=== PATIENT | female | born 1975 | race Caucasian/White ===

== ENCOUNTER 2019-02-24 05:40 | Outpatient (CLI) | payer OTHER ==
[~2019-02-24] VITALS: Ht 170.2 cm; Wt 89.8 kg
[2019-02-24] MEDS ORDERED: FURO20TA4 PO (15:39)
[2019-02-24] MEDS ORDERED: VILA40TA PO (15:39)
[2019-02-24] MEDS ORDERED: METO-395 PO (15:39)
[2019-02-24] MEDS ORDERED: ELET20TA PO (15:39)
== END 2019-02-24 15:50 | disposition home or self-care (01) ==
LOC: PREOP 05:40
PROVIDERS: ATTEND Surgery
DX: Z01.818 Encounter for other preprocedural examination (principal)

== ENCOUNTER 2019-03-03 10:46 | Day surgery (SDC) | payer BC, OTHER ==
[2019-03-03] VITALS (11 sets, daily range): BP systolic 90–109; BP diastolic 52–73
[~2019-03-03] VITALS: Ht 170.2 cm; Wt 89.8 kg
[~2019-03-03 10:46] MED LIST: ELET20TA PO; FURO20TA4 PO; METO-395 PO; VILA40TA PO
--- OUTSIDE RECORDS SUMMARY | 2019-03-03 10:49 | XMS REPORT ---
Author Author LUDWIG ROGEL Organization [facility] Address [address] [place] [address] Care Team Providers Care Conveyor Tender Name Role Phone LUDWIG ROGEL Unavailable PROBLEMS Type Condition ICD9-CM Code HVO09-BD Code Onset Dates Condition Status SNOMED Code Problem Depressive disorder, not elsewhere classified F32.9 Active [id number] ALLERGIES No Information ENCOUNTERS Encounter Location Date Diagnosis [facility] [address] [place] [address] [id number] [id number] Mar, Depressive disorder, not elsewhere classified F32.9 IMMUNIZATIONS No Known Immunizations SOCIAL HISTORY Never Assessed REASON FOR VISIT Psychological evaluation for bariatric surgery. PLAN OF CARE VITAL SIGNS MEDICATIONS Unknown Medications RESULTS No Results PROCEDURES Procedure Date Ordered Result Body Site Psych diagnostic evaluation, new patient March 12, 2018 INSTRUCTIONS MEDICATIONS ADMINISTERED No Known Medications
[2019-03-03] MEDS: LACTATED RINGERS 1,000 ML IV PRN ×2 (11:15→14:16)
[2019-03-03 11:26] LABS: BASOPHILS % (AUTO) 1 % (0-10); EOSINOPHILS # (AUTO) 0.1 10^3/uL (0.0-0.3); EOSINOPHILS % (AUTO) 2 % (0-10); HEMATOCRIT 41 % (35-52); LYMPHOCYTES # (AUTO) 2.3 X 10^3 (1.0-4.0); LYMPHOCYTES % (AUTO) 30 % (12-44); MEAN CORPUSCULAR HEMOGLOBIN 30 PG (25-34); MEAN CORPUSCULAR HGB CONC 34 G/DL (32-36); MEAN CORPUSCULAR VOLUME 88 FL (80-99); MEAN PLATELET VOLUME 10.6 FL (7.4-10.4); MONOCYTES # (AUTO) 0.4 X 10^3 (0.0-1.0); MONOCYTES % (AUTO) 5 % (0-12); NEUTROPHILS # (AUTO) 4.8 X 10^3 (1.8-7.8); NEUTROPHILS % (AUTO) 62 % (42-75); PLATELET COUNT 301 10^3/uL (130-400); RED CELL DISTRIBUTION WIDTH 12.4 % (10.0-14.5); WHITE BLOOD COUNT 7.7 10^3/uL (4.3-11.0)
[2019-03-03] MEDS ORDERED: ceFAZolin 2 GM/50 ML NS 50 ML IV ONE (11:30)
[2019-03-03] MEDS ORDERED: CATHETER FLUSH 10 ML SYR IV PRN (11:45)
--- NOTE | 2019-03-03 11:55 | Progress Note-Pre Operative ---
Pre-Operative Progress Note H&P Reviewed The H&P was reviewed, patient examined and no changes noted. Date Seen by Provider: March 03, 2019 Time Seen by Provider: 11:55 Date H&P Reviewed: March 03, 2019 Time H&P Reviewed: 11:50 Pre-Operative Diagnosis: Symptomatic Biliary Dyskinesia SUSIE GUPTA APRN March 03, 2019 11:55
[2019-03-03] MEDS ORDERED: HYDR-3816 PO (11:57)
--- NOTE | 2019-03-03 11:58 | Discharge Inst-Surgical ---
D/C Lap Instructions-KIDO New, Converted, or Re-Newed RX: RX on Chart Follow Up Appt in 2 weeks Activity as tolerated No driving for 24 hours No driving while on pain medications Incentive Spirometry use every 2 hours while awake Regular Diet Symptoms to Report: Fever over 101 degree F, Nausea/Vomiting Infection Signs and Symptoms to report: Increased redness, Foul odor of wound, Increased drainage Bathing instructions: May shower Operative Area Clean/Dry; Keep incision clean/dry If any problems/questions: Contact your physician or go to Emergency Room SUSIE GUPTA APRN March 03, 2019 11:58
[2019-03-03] MEDS ORDERED: ONDANSETRON 4 MG/2 ML (SDV) Z0FRAN IVP PRN ×2 (12:00→15:15)
[2019-03-03] MEDS ORDERED: morphine INJ 10 MG/ML 1ML (SYR OR VIAL) IVP PRN (12:00)
[2019-03-03] MEDS ORDERED: HYDROcodone/APAP 5 MG/325 MG (LORTAB) TAB PO ONE (12:00)
[2019-03-03] MEDS ORDERED: ACETAMINOPHEN 325 MG TABLET PO PRN (12:00)
[2019-03-03] MEDS ORDERED: FAMOTIDINE 20MG/2ML IV (PEPCID) IV ONE (12:15)
[2019-03-03] MEDS ORDERED: BUP/EPI 0.5% 1:200,000 (SENSORCAINE) 30 ML VIAL ONE (13:09)
[2019-03-03] MEDS ORDERED: FAMOTIDINE 20MG/2ML IV (PEPCID) ONE (13:24)
[2019-03-03] MEDS ORDERED: MIDAZOLAM 2 MG/2 ML (VERSED) VIAL ONE (13:36)
[2019-03-03] MEDS ORDERED: fentaNYL INJECTION 100 MCG/2 ML AMP ONE (13:36)
[2019-03-03] MEDS ORDERED: LIDOCAINE PF 2% 5 ML (XYLOCAINE) VIAL ONE (14:22)
[2019-03-03] MEDS ORDERED: ONDANSETRON 4 MG/2 ML (SDV) Z0FRAN ONE (14:22)
[2019-03-03] MEDS ORDERED: proPOfol 200 MG/20 ML (DIPRIVAN) VIAL IV ONE (14:22)
[2019-03-03] MEDS ORDERED: DEXAMETHASONE 10 MG/ML (DECADRON) 1 ML VIAL ONE (14:22)
[2019-03-03] MEDS ORDERED: ROCURONIUM 10 MG/ML 5 ML SYRINGE IV ONE (14:22)
[2019-03-03] MEDS ORDERED: SEVOFLURANE (ULTANE) 15 ML INHAL SOLN ONE (14:22)
[2019-03-03] MEDS ORDERED: NEOSTIGMINE 1 MG/ML 5 ML SYRINGE ONE (14:22)
[2019-03-03] MEDS ORDERED: GLYCOPYRROLATE 0.2 MG/ML (ROBINUL) 2 ML VIAL ONE (14:22)
[2019-03-03] MEDS ORDERED: HYDROmorphone 2 MG/ML VIAL (DILAUDID) ONE (15:02)
--- NOTE | 2019-03-03 15:05 | Progress Note-Post Operative ---
Post-Operative Progess Note Surgeon (s)/Online Banking Specialist (s) Surgeon BHAVYA ABDALLA MD Online Banking Specialist: sushila liu HUMAN RESOURCES TRAINING MANAGER Pre-Operative Diagnosis Symptomatic Biliary Dyskinesia Post-Operative Diagnosis same Procedure & Operative Findings Date of Procedure 03/03/19 Procedure Performed/Findings laparoscopic cholecystectomy Anesthesia Type GET Estimated Blood Loss Estimated blood loss (mL): minimal Specimens/Packing Specimens Removed gallbladder BHAVYA ABDALLA MD March 03, 2019 15:05
[2019-03-03] MEDS ORDERED: HYDROmorphone 2 MG/ML VIAL (DILAUDID) IV ONE (15:15)
[2019-03-03] MEDS ORDERED: morphine INJ 10 MG/ML 1ML (SYR OR VIAL) IVP ONE (15:15)
[2019-03-03] MEDS ORDERED: HYDROcodone/APAP 5 MG/325 MG (LORTAB) TAB ONE (16:25)
--- NOTE | 2019-03-03 16:27 | Anesthesia-General Post-Op ---
General Patient Condition Mental Status/LOC: Same as Preop Cardiovascular: Satisfactory Nausea/Vomiting: Absent Respiratory: Satisfactory Pain: Controlled Complications: Absent Post Op Complications Complications None Follow Up Care/Instructions Patient Instructions None needed. Anesthesia/Patient Condition Patient Condition Patient was seen after the procedure and she was doing well, no complaints, stable vital signs, no apparent adverse anesthesia problems. JOCELYN OROZCO DO March 03, 2019 16:27
--- NOTE | 2019-03-03 20:17 | OPERATIVE REPORT ---
DATE OF SERVICE: 03/03/2019 PREOPERATIVE DIAGNOSIS: Symptomatic biliary dyskinesia. POSTOPERATIVE DIAGNOSIS: Symptomatic biliary dyskinesia. PROCEDURE: Laparoscopic cholecystectomy. SURGEON: Bhavya Abdalla MD SURGEON CHIEF: Oleksandr Kang APRN ANESTHESIA: General endotracheal. ESTIMATED BLOOD LOSS: Minimal. FINDINGS: Distended gallbladder with omental adhesions to the gallbladder body and fundus. No gallstones identified. DISPOSITION: The patient tolerated the procedure well. INDICATIONS: The patient is a 43-year-old female known to us. She has a history of morbid obesity as well as other related medical comorbidities. In 07/2018, she underwent a gastric sleeve resection and since that time, she has lost a greater than 60 pounds. She states in the past 2 months she has had crampy right upper abdominal quadrant pain with radiation towards the back, which would normally occurs after eating a meal. She also reports that this was initially mild and infrequent; however, has become much more severe as well as more frequent. An ultrasound was performed, which did not show any gallstones; however, HIDA scan was performed, which did show very low ejection fraction of 7% consistent with biliary dyskinesia. DESCRIPTION OF PROCEDURE: The patient was brought to the operating room, laid supine on the table. After adequate IV pain and sedative medications and general endotracheal intubation, the abdomen was prepped and draped in standard surgical fashion. A 0.5% Marcaine with epinephrine was used to anesthetize the overlying skin in the left upper abdominal quadrant. A small transverse skin incision made using 15 blade. An 0 silk suture was applied to the medial aspect of the incision for retraction and a Veress needle inserted with a low opening pressure of 0 mmHg and the abdomen was insufflated to 15 mmHg pressure. The Veress needle removed and a 5 mm Xcel trocar placed followed by a 5 mm 45-degree angle laparoscope visualizing the peritoneal cavity. A 4-quadrant abdominal exploration was performed. There was slightly distended gallbladder as well as omental adhesions towards the body and fundus of the gallbladder. There was no acute inflammatory changes within the gallbladder. Under direct visualization, we then proceeded to place a supraumbilical 10 mm port after the skin and peritoneal lining were anesthetized using 0.5% Marcaine with epinephrine and a transverse skin incision made using 15 blade. In a similar manner, a right upper abdominal quadrant 5 mm port was placed. The patient was then placed in a reverse Trendelenburg position as well as plane right side up, left side down. The fundus of the gallbladder was then retracted anteriorly and superiorly and the omental adhesions were then taken down using blunt dissection as well as electrocautery on the hook instrument. The hepatoduodenal ligament was then bluntly dissected as well as was then opened and dissected using blunt dissection as well as electrocautery using the hook instrument. The entire critical view of safety was identified including the triangle of Calot as well as the cystic duct and artery is only two structures going into the gallbladder as well as the cystic plate behind the proximal gallbladder. A timeout was then taken and the cystic duct and artery were then clipped proximally, distally and cut with EndoShears. The gallbladder was then dissected off the liver bed using electrocautery and hook instrument with visualization of good hemostasis as well as no leaking ducts of Luschka. The gallbladder was removed with a 10 mm port site using an EndoCatch bag. The 10 mm of port was then removed and the fascia and peritoneum to this site was then closed using a 0 Vicryl suture and a Alonso-Herminia device. The abdomen was desufflated and remaining ports removed. All skin incisions were closed using 4-0 Monocryl running subcuticular sutures. Wounds were then cleaned and covered with Dermabond. The patient tolerated the procedure well. We will start IV normal pain medication as well as a clear liquid diet. Once she is tolerating clears, has good pain control with oral pain medication, ambulating well, we will discharge her home. She will be instructed to do no heavy lifting or exertion for the next two weeks. Job ID: [id number] DocumentID: [id number] Dictated Date: 03/03/2019 15:11:09 Contact Lens Molder Date: 03/03/2019 20:17:20 Dictated By: BHAVYA ABDALLA MD [facility]
== END 2019-03-03 16:50 | disposition home or self-care (01) ==
LOC: SDC 10:46
PROVIDERS: ATTEND Surgery
DX: K81.1 Chronic cholecystitis (principal); I10 Essential (primary) hypertension; G47.33 Obstructive sleep apnea (adult) (pediatric); K21.9 Gastro-esophageal reflux disease without esophagitis; F32.9 Major depressive disorder, single episode, unspecified; F41.9 Anxiety disorder, unspecified; G43.909 Migraine, unspecified, not intractable, without status migrainosus; R60.0 Localized edema; Z79.899 Other long term (current) drug therapy; Z98.84 Bariatric surgery status
CPT/HCPCS: 36415; 84703; 85025; 87081; 94664

== ENCOUNTER 2019-03-14 09:21 | Inpatient (IN) | payer BC ==
[~2019-03-14] VITALS: Ht 170.2 cm; Wt 88.2 kg
[~2019-03-14 09:21] MED LIST changes: +HYDR-3816 PO
[2019-03-14 10:15] VITALS: BP 103/59
--- OUTSIDE RECORDS SUMMARY | 2019-03-14 10:21 | XMS REPORT | Continuity of Care Document ---
Author Organization Unknown Address Unknown Allergies Active Description Code Type Severity Reaction Onset Reported/Identified Relationship to Patient Clinical Status Yes No Known Drug Allergies [id number] Drug Allergy Unknown N/A 02/24/2019 Medications There is no data. Problems Date Dx Coded Attending Type Code Diagnosis Diagnosed By 02/24/2019 BHAVYA ABDALLA MD, Ot Z01.818 ENCOUNTER FOR OTHER PREPROCEDURAL EXAMIN 02/25/2019 BHAVYA ABDALLA MD, Ot Z01.818 ENCOUNTER FOR OTHER PREPROCEDURAL EXAMIN 03/08/2019 BHAVYA ABDALLA MD, Ot F32.9 MAJOR DEPRESSIVE DISORDER, SINGLE EPISOD 03/08/2019 BHAVYA ABDALLA MD, Ot F41.9 ANXIETY DISORDER, UNSPECIFIED 03/08/2019 BHAVYA ABDALLA MD Ot G43.909 MIGRAINE, UNSP, NOT INTRACTABLE, WITHOUT 03/08/2019 BHAVYA ABDALLA MD Ot G47.33 OBSTRUCTIVE SLEEP APNEA (ADULT) (PEDIATR 03/08/2019 BHAVYA ABDALLA MD Ot I10 ESSENTIAL (PRIMARY) HYPERTENSION 03/08/2019 BHAVYA ABDALLA MD Ot K21.9 GASTRO-ESOPHAGEAL REFLUX DISEASE WITHOUT 03/08/2019 BHAVYA ABDALLA MD Ot K81.1 CHRONIC CHOLECYSTITIS 03/08/2019 BHAVYA ABDALLA MD Ot R60.0 LOCALIZED EDEMA 03/08/2019 BHAVYA ABDALLA MD Ot Z79.899 OTHER FPC (CURRENT) DRUG THERAPY 03/08/2019 BHAVYA ABDALLA MD Ot Z98.84 BARIATRIC SURGERY STATUS 03/11/2019 BHAVYA ABDALLA MD, Ot F32.9 MAJOR DEPRESSIVE DISORDER, SINGLE EPISOD 03/11/2019 BHAVYA ABDALLA MD Ot F41.9 ANXIETY DISORDER, UNSPECIFIED 03/11/2019 BHAVYA ABDALLA MD Ot G43.909 MIGRAINE, UNSP, NOT INTRACTABLE, WITHOUT 03/11/2019 BHAVYA ABDALLA MD, Ot G47.33 OBSTRUCTIVE SLEEP APNEA (ADULT) (PEDIATR 03/11/2019 BHAVYA ABDALLA MD, Ot I10 ESSENTIAL (PRIMARY) HYPERTENSION 03/11/2019 BHAVYA ABDALLA MD, Ot K21.9 GASTRO-ESOPHAGEAL REFLUX DISEASE WITHOUT 03/11/2019 BHAVYA ABDALLA MD, Ot K81.1 CHRONIC CHOLECYSTITIS 03/11/2019 BHAVYA ABDALLA MD, Ot R60.0 LOCALIZED EDEMA 03/11/2019 BHAVYA ABDALLA MD, Ot Z79.899 OTHER SOFTBALL COACH (CURRENT) DRUG THERAPY 03/11/2019 BHAVYA ABDALLA MD, Ot Z98.84 BARIATRIC SURGERY STATUS Procedures There is no data. Results Test Result Range Complete blood count (CBC) with automated white blood cell (WBC) differential - 03/03/19 11:15 Blood leukocytes automated count (number/volume) 7.7 10*3/uL 4.3-11.0 Blood erythrocytes automated count (number/volume) 4.71 10*6/uL 4.35-5.85 Venous blood hemoglobin measurement (mass/volume) 14.0 g/dL 11.5-16.0 Blood hematocrit (volume fraction) 41 % 35-52 Automated erythrocyte mean corpuscular volume 88 [foz_us] 80-99 Automated erythrocyte mean corpuscular hemoglobin (mass per erythrocyte) 30 pg 25-34 Automated erythrocyte mean corpuscular hemoglobin concentration measurement (mass/volume) 34 g/dL 32-36 Automated erythrocyte distribution width ratio 12.4 % 10.0- 14.5 Automated blood platelet count (count/volume) 301 10*3/uL 130-400 Automated blood platelet mean volume measurement 10.6 [foz_us] 7.4-10.4 Automated blood neutrophils/100 leukocytes 62 % 42-75 Automated blood lymphocytes/100 leukocytes 30 % 12-44 Blood monocytes/100 leukocytes 5 % 0-12 Automated blood eosinophils/100 leukocytes 2 % 0-10 Automated blood basophils/100 leukocytes 1 % 0-10 Blood neutrophils automated count (number/volume) 4.8 10*3 1.8-7.8 Blood lymphocytes automated count (number/volume) 2.3 10*3 1.0-4.0 Blood monocytes automated count (number/volume) 0.4 10*3 0.0- 1.0 Automated eosinophil count 0.1 10*3/uL 0.0-0.3 Automated blood basophil count (count/volume) 0.0 10*3/uL 0.0-0.1 Methicillin resistant Staphylococcus aureus (MRSA) screening culture - 03/03/19 11:17 Methicillin resistant Staphylococcus aureus (MRSA) screening culture NEG NRG Encounters ACCT No. Visit Date/Time Discharge Status Pt. Type Provider Facility Loc./Unit Complaint [id number] 03/03/2019 10:46:00 03/03/2019 16:50:00 DIS Outpatient BHAVYA ABDALLA MD [facility] SDC BILIARY DYSKINESIA [id number] 02/24/2019 05:40:00 02/24/2019 15:50:00 DIS Outpatient BHAVYA ABDALLA MD [facility] PREOP LAPAROSCOPIC CHLECYSTECTOMY
--- NOTE | 2019-03-14 10:30 | NUR ---
MOOKIE CARLAPAOLORERE admitted to room 432-1, with an admitting diagnosis of ABD PAIN, on 03/14/[address] ABDALLA'S OFFICE via W/C, accompanied by STAFF.MOOKIE LUCIO introduced to surroundings, call light, bed controls, phone, TV, temperature control, lights, meal times, smoking policy, visitor policy, side rail policy, bathrooms and showers. Patient Rights given to patient in the handbook.MOOKIE LUCIO verbalizes understanding that [facility] is not responsible for the loss or damage to any personal effects or valuables that are kept in the patients posession during their hospitalization. The following Patient Care Plans were discussed with the PT: Discharge Planning, PAIN CONTROL,IV THERAPY, and TESTS AND PROCEDURES. MOOKIE LUCIO verbalizes understanding of Interdisciplinary Patient Education. Patient and/or family were informed about the Rapid Response Team and its purpose.
[2019-03-14 10:59] VITALS: BP 103/59
[2019-03-14] MEDS ORDERED: ONDANSETRON 4 MG/2 ML (SDV) Z0FRAN IV PRN (11:15)
[2019-03-14] MEDS ORDERED: PROMETHAZINE INJ 25 MG/ML (PHENERGAN) AMP IV PRN (11:15)
[2019-03-14] MEDS ORDERED: fentaNYL INJECTION 100 MCG/2 ML AMP IV PRN (11:15)
[2019-03-14] MEDS ORDERED: CATHETER FLUSH 10 ML SYR IV PRN (11:15)
[2019-03-14] MEDS: NS IV 1000 ML 1,000 ML IV SCH ×2 (11:36→19:42)
[2019-03-14] MEDS: PANTOPRAZOLE 40 MG (PROTONIX) VIAL IV SCH (11:38)
[2019-03-14] MEDS: METOCLOPRAMIDE INJ 10 MG/2 ML (REGLAN) IV SCH ×3 (11:41→23:59)
[2019-03-14 11:51] LABS: BUN/CREATININE RATIO 13; CALCIUM 9.4 MG/DL (8.5-10.1); CARBON DIOXIDE 25 MMOL/L (21-32); CHLORIDE 108 MMOL/L (98-107); GFR ESTIMATED > 60; GLUCOSE 87 MG/DL (70-105); SODIUM 140 MMOL/L (135-145)
[2019-03-14 12:00] VITALS: BP 110/59
[2019-03-14] MEDS ORDERED: ELET40TA PO (14:01)
[2019-03-14] MEDS ORDERED: FURO40TA4 PO (14:01)
[2019-03-14] MEDS ORDERED: PREN-98 PO (14:01)
[2019-03-14] MEDS ORDERED: MULT-273 PO (14:01)
[2019-03-14] MEDS ORDERED: ELET20TA2 PO (14:04)
--- NOTE | 2019-03-14 14:05 | NUR ---
PATIENT LISTED HER CURRENT MEDICATIONS AND I COMPARED WITH THE EXT MED HX. SHE STATES SHE IS NO LONGER TAKING THE HYDROCODONE SHE RECENTLY FILLED, SHE DID NOT TAKE IT MUCH RIGHT AFTER SURGERY EITHER. SHE ALSO STATES SHE TAKES RELPAX NEEDED, I VERIFIED WITH JUDSON IT WAS 20MG BUT HAS NOT BEEN FILLED SINCE SEPTEMBER 2017. SHE TAKES A CHEWABLE MTV AND CHEWABLE VITAMIN OTC DAILY.
--- NOTE | 2019-03-14 16:14 | HISTORY AND PHYSICAL ---
DATE OF SERVICE: ATTENDING PHYSICIAN: Dr. Pittman in [place], [place]. HISTORY OF PRESENT ILLNESS: The patient is a 43-year-old female who is known to us. She has a history of morbid obesity as well as other related medical comorbidities including hypertension, lower extremity edema, anxiety, depression, obstructive sleep apnea. She is status post laparoscopic gastric sleeve resection on 07/19/2018 and since that time has lost greater than 60 pounds. She reports that she has been having a right crampy abdominal pain that did radiate towards her back and this would usually occur after eating a meal. She also reported this was initially mild and infrequent; however, became more severe as with more frequent. An ultrasound was performed which did not show any gallstones. However, HIDA scan was performed, which did show a gallbladder ejection fraction of 74%, but she did report reproduction of symptoms following administration, came back and was consistent with biliary dyskinesia. She did undergo a laparoscopic cholecystectomy done by us on 03/03/2019. She was found to have a distended gallbladder with omental adhesions to the gallbladder body and fundus with no gallstones identified. The pathology did come back as chronic cholecystitis and extensive cholesterolosis. She was discharged home today and doing well. She reports she did call the office approximately five days ago with complaints of abdominal pain. She reported that she was having diarrhea at that time, but denied any other symptoms. She then called again the following day with still complaints of abdominal pain that was slightly worse as well as nausea. At that time, a CBC, UA and a KUB x-ray was performed. CBC was unremarkable as well as UA; however, a KUB did show small bowel, mild ileus. She was then instructed to present to the hospital today to be admitted for bowel rest and IV fluids as well as a pain medication. She reports that she is still having nausea today as well as the abdominal pain, but denies any vomiting. She also denied any fever or chills. PAST MEDICAL HISTORY: Morbid obesity, migraines, hypertension, lower extremity edema, restless leg syndrome, depression, anxiety, obstructive sleep apnea, tachycardia. PAST SURGICAL HISTORY: Foraminotomy in 2007, in 2004, endometrial ablation in 2006, bilateral bunionectomy 2005, bilateral TMJ arthroplasty in 1999, abdominoplasty in 2007, bilateral breast reduction in 2012, left knee arthroscopy with arthrotomy and ORIF, OCD lesion in 2009, removal of retaining hardware and left knee arthroscopy, C3 to C6 anterior cervical decompression and fusion with allograft 2013, laparoscopic gastric sleeve resection 07/19/2018, laparoscopic cholecystectomy 03/03/2019. ALLERGIES: No known drug allergies. MEDICATIONS: Relpax 20 mg p.r.n., metoprolol 100 mg daily, furosemide 40 mg daily, Sinemet 25/100 mg p.r.n., Trintellix 20 mg daily. SOCIAL HISTORY: Negative for smoking. Rare for alcohol. FAMILY HISTORY: Mother with hypertension. Father has diabetes and hypertension. Maternal grandmother had breast cancer, diagnosed in her 50s. Paternal grandfather, diabetes. Vital signs are stable. Current weight is 197 pounds. REVIEW OF SYSTEMS: This is a well-nourished female in no acute distress. She is not experiencing any shortness of breath or difficulty breathing. No chest pain, palpitations or diaphoresis. She does report nausea, but no vomiting. She does report lower achy to sharp abdominal pain. She does report episodes of diarrhea. No red blood per rectum. No dark tarry stools. No fever or chills. No recent inadvertent weight loss. All other review of systems is negative. PHYSICAL EXAMINATION: CHEST: Clear, good breath sounds bilaterally. HEART: Regular. No murmurs. EXTREMITIES: No lower extremity edema. Negative Homans sign. HEENT: Scleral icterus. NECK: No cervical lymphadenopathy. ABDOMEN: Soft with mild distention. This is tender upon palpation. There are no palpable masses. No organomegaly. SKIN: Warm, dry and pink. NEUROLOGIC: Awake, alert and oriented x3. ASSESSMENT AND PLAN: A 43-year-old female who is status post laparoscopic cholecystectomy and developed postoperative ileus. At this time, we will proceed with admitting her for IV fluids as well as IV pain and nausea medication and bowel rest and need for n.p.o. at this time. When she does began having more substantial bowel function, then we will start reintroducing her diet at that time. Job ID: [id number] DocumentID: [id number] Dictated Date: 03/14/2019 10:53:18 Fashion Model Date: 03/14/2019 11:40:26 Dictated By: SUSIE GUPTA APRN
[2019-03-14 16:40] VITALS: BP 101/65
[2019-03-14 19:20] VITALS: BP 104/59
[2019-03-15 00:48] VITALS: BP 102/64
[2019-03-15 03:22] VITALS: BP 110/70
[2019-03-15] MEDS: NS IV 1000 ML 1,000 ML IV SCH (03:33)
[2019-03-15] MEDS: METOCLOPRAMIDE INJ 10 MG/2 ML (REGLAN) IV SCH ×2 (06:10→12:13)
[2019-03-15 08:00] VITALS: BP 115/76
[2019-03-15] MEDS: PANTOPRAZOLE 40 MG (PROTONIX) VIAL IV SCH (09:18)
[2019-03-15] MEDS ORDERED: CHOLESTYRAMINE 4 GM (QUESTRAN LITE, PREVALITE) PKT PO SCH (10:00)
--- NOTE | 2019-03-15 10:07 | Progress Note (SOAP) ---
Subjective Date Seen by a Provider: Mar 15, 2019 Time Seen by a Provider: 09:30 Subjective/Events-last exam doing much better today. no abd pain. having BM's. tolerating clears without difficulty. Objective Exam Vital Signs Date Time Temp Pulse Resp B/P (MAP) Pulse Ox O2 Delivery O2 Flow Rate FiO2 03/15/19 09:00 Room Air 03/15/19 08:00 98.4 85 20 115/76 (89) 98 Room Air 03/15/19 03:22 98.6 80 18 110/70 (83) 96 Room Air 03/15/19 00:48 99.0 76 17 102/64 (77) 95 Room Air 03/14/19 20:05 Room Air 03/14/19 19:20 97.8 66 18 104/59 (74) 95 Room Air 03/14/19 18:55 Room Air 03/14/19 16:40 98.0 68 18 101/65 (77) 97 Room Air 03/14/19 12:00 98.4 71 20 110/59 (76) 98 Room Air 03/14/19 10:59 98.4 86 20 103/59 96 Room Air 03/14/19 10:15 98.4 86 20 103/59 (74) 96 Room Air 03/14/19 10:15 98.4 86 20 103/59 96 Room Air I & O 03/15/19 07:00 Intake Total 2880 ml Output Total 750 ml Balance 2130 ml Capillary Refill : General Appearance: No Apparent Distress HEENT: PERRL/EOMI Neck: Full Range of Motion Respiratory: Chest Non Tender, Lungs Clear, Normal Breath Sounds Cardiovascular: Regular Rate, Rhythm Gastrointestinal: normal bowel sounds, non tender, soft, other (wounds clean/dry) Extremity: Normal Capillary Refill Neurologic/Psychiatric: Alert, Oriented x3 Skin: Normal Color Lymphatic: No Adenopathy Results Lab Laboratory Tests 03/14/19 11:20: Sodium Level 140, Potassium Level 4.0, Chloride Level 108H, Carbon Dioxide Level 25, Anion Gap 7, Blood Urea Nitrogen 10, Creatinine 0.80, Estimat Glomerular Filtration Rate > 60, BUN/Creatinine Ratio 13, Glucose Level 87, Calcium Level 9.4 Microbiology 03/14/19 C. difficile GDH Antigen & Toxins - Final, Complete Assessment/Plan Assessment/Plan Assess & Plan/Chief Complaint abdominal pain, ileus, bile reflux gastritis. ambulate. questran PRN. diet as tolerated. Clinical Quality Measures DVT/VTE Risk/Contraindication: Risk Factor Score Per Nursin RFS Level Per Nursing on Admit: 1=Low/No VTE PPX BHAVYA ABDALLA MD Mar 15, 2019 10:07
[2019-03-15] MEDS ORDERED: CHOL4PAC16 PO (10:11)
--- NOTE | 2019-03-15 10:12 | Discharge Inst-Surgical ---
D/C Lap Instructions-KIDO New, Converted, or Re-Newed RX: RX on Chart Follow Up PRN Activity as tolerated questran QID PRN High Fiber Diet 25g or more per day Avoid Alcohol, Caffeine, Spicy [place] and Acid foods. Drink 64 fluid oz or more of fluids per day. Symptoms to Report: Fever over 101 degree F, Nausea/Vomiting If any problems/questions: Contact your physician or go to Emergency Room BHAVYA ABDALLA MD Mar 15, 2019 10:12
[2019-03-15 13:00] VITALS: BP 115/76
--- NOTE | 2019-03-15 13:00 | NUR ---
MOOKIE LUCIO demonstrates understanding of discharge instructions and accurately returns instructions upon questioning. Copy of Post-Discharge Instructions and Medication Discharge Instructions given to PATIENT. MOOKIE LUCIO is able to manage continuing needs after discharge. Patients belongings returned to [facility]. Skin dry and intact; no breakdown noted. Patient discharged from [facility] on at 1300. MOOKIE LUCIO left floor AMBULATORY, accompanied by AND STAFF.
--- NOTE | 2019-03-16 17:19 | Physician Query-Final Dx ---
ARSH PAINTING 03/16/19 1719: Final Diagnosis Give Final Diagnosis Please give Final Diagnosis BHAVYA ABDALLA MD 03/17/19 1007: Final Diagnosis Give Final Diagnosis ileus, bile acid gastritis, abdominal pain. ARSH PAINTING Mar 16, 2019 17:19 BHAVYA ABDALLA MD Mar 17, 2019 10:07
--- NOTE | 2019-03-17 11:53 | Physician Query Clarification ---
PQ-Link Manifestation-Etiology Admission/Discharge Admission Date: Mar 14, 2019 at 10:10 Discharge Date: Mar 15, 2019 at 13:00 The medical record reflects the following clinical scenario: History/Risk Factors: S/P lap cholecystectom 03/03/19, FAMILIA, HTN, bile reflux gastritis Clinical Findings: abdominal pain, diarrhea, nausea Treatment: bowel rest, IV fluids, IV pain meds Question: Can you specify if the ileus is due to/associated with 03/03/19 lap cyril ? Please document a response in the Progress Note or Discharge Summary. 1. Yes - ileus is due to/associated with 03/03/19 lap cyril. 2. No - ileus is not due to/associated with 03/03/19 lap cyril. 3. Other, with explanation of the clinical findings. 4. Clinically undetermined, no explanation for the clinical findings. PHYSICIAN RESPONSE Manifestation due to/assoic: Yes (1.) Please remember a lack of response to the above will prompt a phone page by CDI/Coding staff. In responding to this query, please exercise your independent professional judgment. The purpose of this communication is to more accurately reflect the complexity of your patients condition. The fact that a question is asked does not imply that any particular answer is desired or expected. Thank you for your timely response to this clarification. Requestors name: Diana THIS PHYSICIAN QUERY FORM IS A PERMANENT PART OF THE MEDICAL RECORD DIANA SHIELDS Mar 17, 2019 11:53 BHAVYA ABDALLA MD Mar 17, 2019 14:11
--- OUTSIDE RECORDS SUMMARY | 2019-03-18 17:24 | XMS REPORT | Continuity of Care Document ---
Author Organization Unknown Address Unknown Allergies Active Description Code Type Severity Reaction Onset Reported/Identified Relationship to Patient Clinical Status Yes No Known Drug Allergies [id number] Drug Allergy Unknown N/A 02/24/2019 Medications There [...] 03/08/2019 BHAVYA ABDALLA MD Ot Z79.899 OTHER HALF-WAY (CURRENT) DRUG THERAPY 03/08/2019 BHAVYA ABDALLA MD Ot Z98.84 BARIATRIC SURGERY STATUS 03/11/2019 BHAVYA ABDALLA MD, Ot F32.9 MAJOR DEPRESSIVE DISORDER, SINGLE EPISOD 03/11/2019 BHAVYA ABDALLA MD Ot F41.9 ANXIETY DISORDER, UNSPECIFIED 03/11/2019 BHAVYA ABDALLA MD Ot G43.909 MIGRAINE, UNSP, NOT INTRACTABLE, WITHOUT 03/11/2019 BHVAYA ABDALLA MD, Ot G47.33 OBSTRUCTIVE SLEEP APNEA (ADULT) (PEDIATR 03/11/2019 BHAVYA ABDALLA MD Ot I10 ESSENTIAL (PRIMARY) HYPERTENSION 03/11/2019 BHAVYA ABDALLA MD, Ot K21.9 GASTRO-ESOPHAGEAL REFLUX DISEASE WITHOUT 03/11/2019 BHAVYA ABDALLA MD, Ot K81.1 CHRONIC CHOLECYSTITIS 03/11/2019 BHAVYA ABDALLA MD Ot R60.0 LOCALIZED EDEMA 03/11/2019 BHAVYA ABDALLA MD, Ot Z79.899 OTHER ENLISTED ADVISOR (CURRENT) DRUG THERAPY 03/11/2019 BHAVYA ABDALLA MD, Ot Z98.84 BARIATRIC SURGERY STATUS 03/15/2019 BHAVYA ABDALLA MD, Ot F32.9 MAJOR DEPRESSIVE DISORDER, SINGLE EPISOD 03/15/2019 BHAVYA ABDALLA MD, Ot F41.9 ANXIETY DISORDER, UNSPECIFIED 03/15/2019 BHAVYA ABDALLA MD, Ot G47.33 OBSTRUCTIVE SLEEP APNEA (ADULT) (PEDIATR 03/15/2019 BHAVYA ABDALLA MD, Ot I10 ESSENTIAL (PRIMARY) HYPERTENSION 03/15/2019 BHAVYA ABDALLA MD, Ot K29.60 OTHER GASTRITIS WITHOUT BLEEDING 03/15/2019 BHAVYA ABDALLA MD, Ot K56.7 ILEUS, UNSPECIFIED 03/15/2019 BHAVYA ABDALLA MD, Ot K91.89 OTH POSTPROCEDURAL COMPLICATIONS AND DIS 03/15/2019 BHAVYA ABDALLA MD, Ot R60.0 LOCALIZED EDEMA Procedures There is no data. Results Test [...] Staphylococcus aureus (MRSA) screening culture NEG NRG Whole blood basic metabolic panel - 03/14/19 11:20 Serum or plasma sodium measurement (moles/volume) 140 mmol/L 135-145 Serum or plasma potassium measurement (moles/volume) 4.0 mmol/L 3.6-5.0 Serum or plasma chloride measurement (moles/volume) 108 mmol/L 98-107 Carbon dioxide 25 mmol/L 21-32 Serum or plasma anion gap determination (moles/volume) 7 mmol/L 5-14 Serum or plasma urea nitrogen measurement (mass/volume) 10 mg/dL 7-18 Serum or plasma creatinine measurement (mass/volume) 0.80 mg/dL 0.60-1.30 Serum or plasma urea nitrogen/creatinine mass ratio 13 NRG Serum or plasma creatinine measurement with calculation of estimated glomerular filtration rate > NRG Serum or plasma glucose measurement (mass/volume) 87 mg/dL 70-105 Serum or plasma calcium measurement (mass/volume) 9.4 mg/dL 8.5-10.1 C DIFFICILE AG + TOXIN A/B. - 03/14/19 20:53 RESULTS NEGATIVE FOR ANTIGEN AND TOXIN A/B NRG Encounters ACCT No. Visit Date/Time Discharge Status Pt. Type Provider Facility Loc./Unit Complaint [id number] 03/14/2019 10:10:00 03/15/2019 13:00:00 DIS Inpatient BHAVYA ABDALLA MD [facility] 4TH POST OP ILEUS,N/V,ABD PAIN [id number] 03/03/2019 10:46:00 03/03/2019 16:50:00 DIS Outpatient [facility] [id number] 02/24/2019 05:40:00 02/24/2019 15:50:00 DIS Outpatient BHAVYA ABDALLA MD [facility] PREOP LAPAROSCOPIC CHLECYSTECTOMY
== END 2019-03-15 13:00 | disposition home or self-care (01) | DRG 394 ==
LOC: OBSVTOIN 10:10 → 4TH 10:10 → UNDOADMOB 10:10 → 4TH 10:10 → INTOOBSV 10:10 → EDSTATUS 15:45 → UNDODISIN 03-15 13:00
PROVIDERS: ADMIT Surgery; ATTEND Surgery
DX: K91.89 Other postprocedural complications and disorders of digestive system (principal); K56.7 Ileus, unspecified; K29.60 Other gastritis without bleeding; I10 Essential (primary) hypertension; G47.33 Obstructive sleep apnea (adult) (pediatric); R60.0 Localized edema; F41.9 Anxiety disorder, unspecified; F32.9 Major depressive disorder, single episode, unspecified
CPT/HCPCS: 36415; 80048; 87324; 87449